=== PATIENT | male | born 1955 | race Caucasian/White ===

== ENCOUNTER 2017-05-08 08:11 | Outpatient (CLI) ==
[2014-05-10 13:09] VITALS: BMI 31.6
[2017-05-08 08:41] LABS: BASOPHILS # (AUTO) 0.1 K/uL (0-0.2); BASOPHILS % (AUTO) 0.8 % (0.0-3.0); EOSINOPHILS # (AUTO) 0.3 K/ul (0.0-0.7); EOSINOPHILS % (AUTO) 2.5 % (0.0-7.0); HEMATOCRIT 42.7 % (42.0-52.0); HEMOGLOBIN 14.6 g/dl (14.0-18.0); IMMATURE GRANULOCYTE % (AUTO) 0.4 % (0.0-5.0); LYMPHOCYTES # (AUTO) 2.8 K/uL (0.60-3.4); LYMPHOCYTES % (AUTO) 24.4 (10.0-50.0); MEAN CORPUSCULAR HGB CONC 34.2 (31.8-35.4); MEAN CORPUSCULAR VOLUME 84.7 fl (80.0-94.0); MONOCYTES # (AUTO) 0.8 K/uL (0.4-2.0); NEUTROPHILS # (AUTO) 7.6 K/ul (2.0-6.9); NEUTROPHILS % (AUTO) 64.9; PLATELET COUNT 375 10^3/uL (140-440); RED BLOOD COUNT 5.04 10^6/ul (4.70-6.10); WHITE BLOOD COUNT 11.63 K/ul (4.2-10.2)
[2017-05-08 09:16] LABS: ALBUMIN 3.5 g/dL (3.4-5.0); ALBUMIN/GLOBULIN RATIO 0.85; ANION GAP 13.1; BILIRUBIN,TOTAL 0.5 mg/dL (0.00-1.20); BUN/CREATININE RATIO 23.75; CALCIUM 9.5 mg/dL (8.2-10.2); CHOL/HDL RATIO 4.4 (4.5-6.4); CREATININE 0.8 mg/dL (0.60-1.10); POTASSIUM 4.1 mmol/L (3.5-5.1); TOTAL PROTEIN 7.6 g/dL (5.8-8.1)
== END 2017-05-08 08:12 | disposition home or self-care (01) ==
LOC: LAB 08:11
PROVIDERS: ATTEND Internal Medicine
DX: E78.5 Hyperlipidemia, unspecified (principal); I10 Essential (primary) hypertension; Z12.5 Encounter for screening for malignant neoplasm of prostate
CPT/HCPCS: 36415; 80053; 80061; 83036; 84443; 85025

== ENCOUNTER 2017-11-20 08:11 | Outpatient (CLI) | payer OTHER ==
[2014-05-10 13:09] VITALS: BMI 31.6
== END 2017-11-20 08:12 | disposition home or self-care (01) ==
LOC: LAB 08:11
PROVIDERS: ATTEND Internal Medicine
DX: E78.5 Hyperlipidemia, unspecified (principal); I10 Essential (primary) hypertension; J44.9 Chronic obstructive pulmonary disease, unspecified; R73.9 Hyperglycemia, unspecified
CPT/HCPCS: 36415; 80053; 80061; 83036; 84443; 85025

== ENCOUNTER 2018-05-11 07:48 | Outpatient (CLI) ==
[2014-05-10 13:09] VITALS: BMI 31.6
== END 2018-05-11 07:49 | disposition home or self-care (01) ==
LOC: LAB 07:48
PROVIDERS: ATTEND Internal Medicine
DX: E78.5 Hyperlipidemia, unspecified (principal); I10 Essential (primary) hypertension; R73.9 Hyperglycemia, unspecified
CPT/HCPCS: 36415; 80053; 80061; 83036; 84439; 84443; 85025

== ENCOUNTER 2018-11-05 13:45 | Outpatient (CLI) | payer OTHER ==
[2014-05-10 13:09] VITALS: BMI 31.6
--- NOTE | 2018-11-05 14:42 | CT ---
EXAM: CT of the lumbar spine without contrast History: Lower back pain, right leg pain. Technique: Multiplanar CT images through the lumbar spine were obtained without the administration o f IV contrast Findings: Atherosclerotic vascular calcifications. Colonic diverticulosis. No acute fracture or subluxation of the lumbar spine. Severe disc space narrowing at L1-L2 with endp late sclerosis, osteophyte formation and vacuum disc phenomenon. Moderate disc space narrowing at L4 -L5 and moderate disc space narrowing with the lower thoracic spine. Moderate disc space narrowing a t L5-S1. T12-L1: No significant disc bulge, central canal stenosis or bony neural foraminal narrowing. L1-L2: Large right paracentral disc protrusion effacing anterior thecal sac with moderate central ca nal stenosis. Moderate to severe right and mild left bony neural foraminal narrowing secondary to li gamentous and facet hypertrophy. L2-L3: Small disc bulge effacing anterior thecal sac with no significant central canal stenosis. Mod erate right and mild left bony neural foraminal narrowing secondary to ligamentous and facet hypertro phy. L3-L4: Modest to large paracentral disc protrusion effacing anterior thecal sac with moderate to sev ere central canal stenosis. Moderate to severe left and moderate right bony neural foraminal narrowi ng secondary to ligamentous and facet hypertrophy. L4-L5: Small disc bulge effacing anterior thecal sac with mild central canal stenosis. Severe left and moderate right bony neural foraminal narrowing secondary to ligamentous and facet hypertrophy. L5-S1: Left paracentral disc protrusion effacing anterior thecal sac with mild central canal stenosi s. Severe left and moderate to severe right bony neural foraminal narrowing secondary to ligamentous and facet hypertrophy. Impression: 1. No acute osseous abnormality of the lumbar spine. 2. Level by level analysis as detailed above with multilevel central canal stenosis and bony neural foraminal narrowing.
== END 2018-11-05 13:46 | disposition home or self-care (01) ==
LOC: RAD 13:45
PROVIDERS: ATTEND Internal Medicine
DX: M54.5 Low back pain (principal)

== ENCOUNTER 2018-12-15 08:15 | Outpatient (RCR) ==
[2014-05-10 13:09] VITALS: BMI 31.6
--- NOTE | 2018-11-27 08:25 | RS.OPPTEV2 ---
Date of Note: 11/26/18 Visit #: 1 Number of visits approved by Insurance: 20 visit max per year Date of Evaluation: 11/26/18 Payer Source: Insurance ([employer] [facility]) Date of Onset/Injury/Change in Status: 11/16/18 Treatment Diagnosis: Left LE radicular pain History of Condition/Mechanism of Injury:: Mr. Short states his pain started after shopping at a [employer] improvement store and reaching up and pulling out a plywood type board that was near the bottome of the pile. States he has had similar episodes before, but was able to get over it with a steroid injection and rest. Prior Level of Function.....Patient was independent with: ADL's, Self Care, Work /Vocation, Caregiving, Ambulation/Mobility, Community Integration/Access Functional Limitations: Sleep, ADL's (that require prolonged standing), Reaching , Pushing, Pulling, Lifting, Carrying, Standing, Ambulation, Community Access/ Integration Current Subjective/complaints:: Mr. Short reports left LE radiating pain since the first of this month. He has had two steroid injections and taken a round of oral steroids. His biggest relief has been since he started wearing a back brace last week. Reports pain in the left LE feels like a ball of fire down to the ankle. States he has this pain on a daily basis, like a toothache. Walking and standing bother him the worse. If he can lean forward and support himself on something, or sit down, he gets relief of his pain. He has been off work since the onset. 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 States sitting usually eases his pain, as long as it is a firm chair with his legs down. He cannot tolerate sitting in a reclined chair. Treatment Side (optional): Left Medical History Medical History: Hypertension Surgical History Comments:: CABG Smoking Status: Former smoker Hx Home Medications: Lisinopril, rosuvastatin, clopidogrel, metoprolol, aspirin Patient's Goals: His goal is to get relief of left LE pain and return to his regular activities. Pain Assessment - Pain Description Pain Location: Left buttock and radiating into the left LE to the ankle Pain Description: "like a ball of fire", toothache Current Pain Intensity: 6/10 Worst Pain Intensity: 9/10 Functional Outcome Measure Oswestry LBP: 56 - G Codes & Severity Modifier G Codes & Modifier: NA Source of G Code score: NA Observation - Observation Posture: Forward Head, Rounded Shoulders, Increased Thoracic Kyphosis, Decreased Lumbar Lordosis, Posterior Pelvic Tilt Gait - Gait Pattern Gait Comments: Patient ambulates with slight flexion at hips and no use of assistive device. - ROM Lumbar Flexion: Hand reach to Mid-Shins Sidebending to Left: Reach to Mid-thigh Sidebending to Right: Reach to Mid-thigh Comments: Reports reproduction of symptoms with lumbar extension and left lateral flexion. Reports no pain, other than muscle tightness with lumbar flexion. Bilateral LE AROM is WFL's. - Strength Trunk Lateral Flexion: 4 Good Trunk Rotation: 4 Good Comments: Bilateral LE strength is 4+ to 5/5 throughout. - Special Tests ABIGAIL Test: Negative Left, Negative Right SLR Test: Negative Right, Positive Left Seated Dural Stretch Test: Negative Right, Positive Left SI Joint Compression: Negative Palpation Comments:: Patient reports some tenderness over the left gluteal and piriformis region. Denies tenderness with palpation throughout the lumbar spine or to the SI joints. Demonstrates moderate increased muscle tone along the lumbar paraspinals. Sensation - Sensation Right Lower Extremity: Intact/Normal Left Lower Extremity: Intact/Normal Additional Comments: Additional Comments: SLR on the left painful at 30-35 degrees, able to take SLR to 45-50 degrees. Right SLR does not illicit pain and can go to 45-50 degrees. - Treatment Modality: Electrical Stim Unattended Parameters/Method Applied: 4 large pads uncrossed current, [address] vertically to each side of lumbar spine. X 20 mins HVGS upto 165 peak volts Patient Position: Sitting Comments: with Cold pack - Heat/Cryotherapy Treatment: Cryotherapy (with Estim to low back) Interventions - Exercise/Activities/Manual Therapy Exercises/Activities: Patient instructed in DKTC, SKTC, and Piriformis stretch for home. Advised to avoid standing or walking for long periods of time. Discussed positioning at night with pillows between his knees to relieve some pressure off his hips and spine. Also encouraged him to use ice or heat to his back to help manage his pain. Total minutes of Exercise: X 14 mins Manual Therapy: NA HOME EXERCISE PROGRAM: DKTC, SKTC, piriformis - Charges Timed Code Treatment Minutes: 14 mins Total Treatment Time: 58 mins Procedures billed for this date of service:: Eval low, Estim, CP EVALUATION COMPLEXITY LEVEL EVALUATION COMPLEXITY LEVEL: HISTORY: Low (CABG, Hx of episodes of back pain), EXAM OF BODY SYSTEMS: Medium (MS, ROM, sensation, gait), CLINICAL PRESENTATION: Low, CLINICAL DECISION MAKING: Low Assessment Assessment: Mr. Short presents to therapy with a diagnosis of sciatica. He reports back pain did not respond much to steroids. He has been helped more with wearing a back brace. He has difficulty tolerating standing and walking due to increased left LE pain. He has been unable to work since the onset of his pain. He gets relief if he can sit down in a firm chair or lean forward while standing. He demonstrates a positive SLR in sitting and supine. Denies tenderness in his area of pain. Feel Mr. Short's source of pain is likely from stenosis or inflammed facets. He demonstrates good potential to benefit from modalities to reduce his pain level and stretching to decrease muscle tension and spinal pressure to relieve his radiating pain. Patient Education: Education of diagnosis, Body/Joint mechanics, Home Exercise Program, Home Safety, Activity Modification, Education of Plan of Care Rehab Potential: Good Short Term Goals Goal #1: Patient independent in HEP. Goal to be met by: 12/11/18 Goal #2: Left LE pain decreased to less than daily. Goal to be met by: 12/11/18 Goal #3: Left LE pain localized to the hip. Goal to be met by: 12/11/18 Intermediate Goals Goal #1: Pt knows HEP and to continue ex's to maintain functional level at D/C, Goal to be met by: 01/06/19 Goal #2: Score on Oswestry LBP scale improved to 20. Goal to be met by: 01/06/19 Goal #3: Pt able to stand and walk without limitation from left LE pain. Goal to be met by: 01/06/19 Goal #4: Pt able to return to work with minimal LBP or LLE pain. Goal to be met by: 01/06/19 Plan - Treatment to be Provided Procedures: Therapeutic Exercises, Therapeutic Activity, Manual Therapy, Patient Education Modalities: Electrical Stimulation, Ultrasound/Phonophoresis, Class IV Laser, Cryotherapy, Hot Packs - Treatment Plan Frequency: 2-3 X week Duration: 4 weeks Dates of Intermediate Goals: 01/06/19 Expiration date of current Insurance Approval:: NA - Treatment Code (1) Left lumbar radiculopathy Code(s): M54.16 - RADICULOPATHY, LUMBAR REGION Comments: M54.16 (2) Sciatica associated with disorder of lumbar spine Code(s): M54.30 - SCIATICA, UNSPECIFIED SIDE (3) Sciatica Code(s): M54.30 - SCIATICA, UNSPECIFIED SIDE Qualifiers: Laterality: left Qualified Code(s): M54.32 - Sciatica, left side
--- NOTE | 2018-11-27 13:22 | RS.OPPTDN ---
Subjective Date of Note: 11/27/18 Visit #: 2 Number of visits approved by Insurance: 2-3x4 Date of Evaluation: 11/26/18 Payer Source: Insurance ([employer]) Treatment Diagnosis: Left LE radicular pain Current Subjective/complaints:: Patient says he felt pain relief from treatment at his eval and is still having decreased pain to 5/10 right now. He reports he has gained relief also from wearing his back brace. States he has performed instructed stretches and is using a pillow support between his knees laying on his side at home, which is also providing pain reduction. - Treatment Modality: Electrical Stim Unattended Parameters/Method Applied: hivolt 4 large pads running vertically to bilateral lumbar paraspinals and to SI joints @ 265-305 pk volts x 20 mins Patient Position: Right Sidelying - Heat/Cryotherapy Treatment: Hot Pack Interventions - Exercise/Activities/Manual Therapy Exercises/Activities: Patient receives stretching for piriformis, figure 4, SKTC , HS bilaterally, but with more focus to the L. Patient receives education on his diagnosis, anatomy, proper body mechanics, and HEP review. Total minutes of Exercise: 16 Manual Therapy: NA HOME EXERCISE PROGRAM: DKTC, SKTC, piriformis - Charges Timed Code Treatment Minutes: 16 Total Treatment Time: 36 Procedures billed for this date of service:: hp, estim (un), ex Assessment: Patient experiencing improved back pain with treatment and with constant use of his brace. He is compliant with initial HEP and is also finding relief with them. He should benefit from further modalities and progression of flexibility exercises and strengthening. Patient Education: Education of diagnosis, Body/Joint mechanics, Home Exercise Program, Education of Plan of Care Patient demonstrates compliance with HEP?: Yes Short Term Goals Goal #1: Patient independent in HEP. Goal to be met by: 12/11/18 Progress towards Goal:: Progressing Goal #2: Left LE pain decreased to less than daily. Goal to be met by: 12/11/18 Goal #3: Left LE pain localized to the hip. Goal to be met by: 12/11/18 [facility] Goals Goal #1: Pt knows HEP and to continue ex's to maintain functional level at D/C, Goal to be met by: 01/06/19 Goal #2: Score on Oswestry LBP scale improved to 20. Goal to be met by: 01/06/19 Goal #3: Pt able to stand and walk without limitation from left LE pain. Goal to be met by: 01/06/19 Goal #4: Pt able to return to work with minimal LBP or LLE pain. 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
--- NOTE | 2018-12-01 14:25 | RS.OPPTDN ---
Subjective Date of Note: 12/01/18 Visit #: 3 Number of visits approved by Insurance: na Date of Evaluation: 11/26/18 Payer Source: Insurance ([employer]) Treatment Diagnosis: Left LE radicular pain Current Subjective/complaints:: Patient states he is pleased that his back pain is less. He says pain is less often in the L leg. Reports he is performing stretches at home. He asks if he should start weaning from his back brace because he does not want to weaken his mm and get used to wearing it. He says it does help his posture significantly. - Treatment Modality: Electrical Stim Unattended Parameters/Method Applied: hivolt 4 large pads vertically down the lumbar paraspinals and superior gluts @ 265-305 pk volts x 20 mins Patient Position: Right Sidelying - Heat/Cryotherapy Treatment: Hot Pack Interventions - Exercise/Activities/Manual Therapy Exercises/Activities: Patient receives stretching for piriformis, figure 4, SKTC , HS bilaterally, but with more focus to the L. Began isometric hip abd/add/ flexion in hooklying x 8. Discussed weaning from brace using it once he is out of bed in the morning and using it until early afternoon, then remove. Discussed postural awareness, performing shoulder shrugs, scap adduction. Patient receives education on his diagnosis, anatomy, proper body mechanics, and HEP review. Total minutes of Exercise: 16 Manual Therapy: NA HOME EXERCISE PROGRAM: DKTC, SKTC, piriformis - Charges Timed Code Treatment Minutes: 16 Total Treatment Time: 36 Procedures billed for this date of service:: hp, estim (un), ex Assessment: Patient is experiencing less intense L sided back pain with also less frequent L LE symptoms. He is able to ambulate longer distances with less difficulty and remains optimistic about further reduction in pain as therapy sessions progress. He is planning to wean down off of his constant back brace and use it primarily when he awakens to early afternoon so that he can have less pain and better posture upon arising and perform strengthening exercises also throughout the day. Patient Education: Education of diagnosis, Body/Joint mechanics, Home Exercise Program Patient demonstrates compliance with HEP?: Yes Short Term Goals Goal #1: Patient independent in HEP. Goal to be met by: 12/11/18 Progress towards Goal:: Progressing Goal #2: Left LE pain decreased to less than daily. Goal to be met by: 12/11/18 Progress towards Goal:: Progressing Goal #3: Left LE pain localized to the hip. 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 Goal to be met by: 01/06/19 Goal #3: Pt able to stand and walk without limitation from left LE pain. Goal to be met by: 01/06/19 Goal #4: Pt able to return to work with minimal LBP or LLE pain. Goal to be met by: 01/06/19 Plan Dates of Platform Mill Supervisor Goals: 01/06/19 Expiration date of current Insurance Approval:: 01/06/19 PLAN: Patient to continue with modalities and therex for flexibility and trunk and postural strengthening.
--- NOTE | 2018-12-03 15:33 | RS.OPPTDN ---
Subjective Date of Note: 12/03/18 Visit #: 4 Number of visits approved by Insurance: na Date of Evaluation: 11/26/18 Payer Source: Insurance ([employer]) Treatment Diagnosis: Left LE radicular pain Current Subjective/complaints:: Patient says he has been wearing his brace less often. Mostly wearing when he awakens and then takes it off after lunch. He says his pain is lessening and is averaging 3/10. States his pain has gotten significantly better and having less down the L LE. Pain Assessment - Pain Description Pain Location: 3/10 to the L LOw back and buttock - Treatment Modality: Electrical Stim Unattended Parameters/Method Applied: hivolt 4 large pads x 20 mins @ 345-405 pk volts to the lumbar parapsinals and superior buttocks Patient Position: Right Sidelying - Heat/Cryotherapy Treatment: Hot Pack Interventions - Exercise/Activities/Manual Therapy Exercises/Activities: Patient receives stretching for piriformis, figure 4, SKTC , HS bilaterally, but with more focus to the L. Continued with isometric hip abd/add/flexion in hooklying x 10. Began bridging 2x5. Sits to perform shoulder shrugs and scap retraction. Patient receives education on his diagnosis, anatomy, proper body mechanics, and HEP review. Total minutes of Exercise: 18 Manual Therapy: NA HOME EXERCISE PROGRAM: DKTC, SKTC, piriformis - Charges Timed Code Treatment Minutes: 18 Total Treatment Time: 38 Procedures billed for this date of service:: hp, estim (un), ex Assessment: Patient experiencing continued decrease in L LB and L LE pain. He is wearing his back brace less often and gaining stability as he says his back pain has not increased with weaning off of it. He is able to provide increased resistance through isometric exercises and demo improved flexibility with hamstrings and piriformis. Patient Education: Body/Joint mechanics, Home Exercise Program Patient demonstrates compliance with HEP?: Yes Short Term Goals Goal #1: Patient independent in HEP. Goal to be met by: 12/11/18 Progress towards Goal:: Progressing Goal #2: Left LE pain decreased to less than daily. Goal to be met by: 12/11/18 Progress towards Goal:: Progressing Goal #3: Left LE pain localized to the hip. Goal to be met by: 12/11/18 Progress towards Goal:: Progressing Court Deputy Goals Goal #1: Pt knows HEP and to continue ex's to maintain functional level at D/C, Goal to be met by: 01/06/19 Goal #2: Score on Oswestry LBP scale improved to 20. Goal to be met by: 01/06/19 Goal #3: Pt able to stand and walk without limitation from left LE pain. Goal to be met by: 01/06/19 Goal #4: Pt able to return to work with minimal LBP or LLE pain. Goal to be met by: 01/06/[address] Goals: 01/06/19 Expiration date of current Insurance Approval:: 01/06/19 PLAN: Continue TIW for modalities to further ease back pain and progress strengthening
--- NOTE | 2018-12-10 08:50 | RS.OPPTDN ---
Subjective Date of Note: 12/08/18 Visit #: 5 Number of visits approved by Insurance: na Date of Evaluation: 11/26/18 Payer Source: Insurance ([email or web address]) Treatment Diagnosis: Left LE radicular pain Current Subjective/complaints:: Patient says he is able to walk and stand longer with less pain and difficulty. He says he has been able to see less tightness to his back and improved ease with all exercises. - Treatment Modality: Electrical Stim Unattended Parameters/Method Applied: hivolt 2 large pads to the L lumbar paraspinals and SI joint, 2 large to the R lumbar paraspinals @ 465pk and 425 pk volts respectively x 20 mins PRIOR to therex Patient Position: Right Sidelying - Heat/Cryotherapy Treatment: Hot Pack Interventions - Exercise/Activities/Manual Therapy Exercises/Activities: Patient receives progressive stretching bilaterally, but with more focus to the L LE: SKTC, HS, Piriformis, Figure 4, lower trunk rotation. He performs ball squeezes, green tband for hooklying hip abd, bridging, SLR, isometric hip flexion 2x10. Began stationary bike x 6 mins to build strength and endurance. Total minutes of Exercise: 19 Manual Therapy: NA HOME EXERCISE PROGRAM: DKTC, SKTC, piriformis - Charges Timed Code Treatment Minutes: 19 Total Treatment Time: 39 Procedures billed for this date of service:: hp, estim (un),ex Assessment: Patient maintaining lowered L LB and SI pain enabling him to stand and amb longer before pain presents. He is able to demo increased flexibility with all stretches and is [place] less dependency on his back brace. Began aerobic activity to return to PLOF and further improve LE strength to endure prolonged amb and standing for work. Patient Education: Body/Joint mechanics, Home Exercise Program, Education of Plan of Care Patient demonstrates compliance with HEP?: Yes Short Term Goals Goal #1: Patient independent in HEP. Goal to be met by: 12/11/18 Progress towards Goal:: Progressing Goal #2: Left LE pain decreased to less than daily. Goal to be met by: 12/11/18 Progress towards Goal:: Progressing Goal #3: Left LE pain localized to the hip. Goal to be met by: 12/11/18 Progress towards Goal:: Progressing [facility] Goals Goal #1: Pt knows HEP and to continue ex's to maintain functional level at D/C, Goal to be met by: 01/06/19 Goal #2: Score on Oswestry LBP scale improved to 20. Goal to be met by: 01/06/19 Goal #3: Pt able to stand and walk without limitation from left LE pain. Goal to be met by: 01/06/19 Goal #4: Pt able to return to work with minimal LBP or LLE pain. Goal to be met by: 01/06/19 Plan Dates of Activity Assistant Goals: 01/06/19 Expiration date of current Insurance Approval:: 01/06/19 PLAN: Continue to decrease L LE radiculopathy and aerobic activity cycling stationary bike and treadmill to meet goals.
--- NOTE | 2018-12-10 12:12 | RS.OPPTDN ---
Subjective Date of Note: 12/10/18 Visit #: 6 Number of visits approved by Insurance: na Date of Evaluation: 11/26/18 Payer Source: Insurance ([employer]) Treatment Diagnosis: Left LE radicular pain Current Subjective/complaints:: Patient says he is doing well with wearing brace less often. He states he felt good after working on the bike last session. States pain is only at the L groin intermittently and L LB. Pain Assessment - Pain Description Pain Location: 10/25 - Treatment Modality: Electrical Stim Unattended Parameters/Method Applied: hivolt 2 large pads at the L lower lumbar paraspinals and L SI joint @ 365 pk volts and 2 at the R lumbar paraspinals @ 335 pk volts x 20 mins Patient Position: Right Sidelying - Heat/Cryotherapy Treatment: Hot Pack Interventions - Exercise/Activities/Manual Therapy Exercises/Activities: Patient receives progressive stretching bilaterally, but with focus to the L. SKTC, HS, Piriformis, figure 4, lower trunk rotation x 3 reps. Isometrics for flexion/abd/add. Began treadmill @ 1.2-1.5 mph x 6 mins Total minutes of Exercise: 15 Manual Therapy: NA HOME EXERCISE PROGRAM: DKTC, SKTC, piriformis - Charges Timed Code Treatment Minutes: 15 Total Treatment Time: 35 Procedures billed for this date of service:: hp, estim(un), ex Assessment: Patient presents without brace and walking more erect. He has decreased pain and improved [place] to progressive therex including amb on treadmill x 6 mins without reproduction of pain. Patient Education: Body/Joint mechanics, Home Exercise Program Patient demonstrates compliance with HEP?: Yes Short Term Goals Goal #1: Patient independent in HEP. Goal to be met by: 12/11/18 Progress towards Goal:: Progressing Goal #2: Left LE pain decreased to less than daily. Goal to be met by: 12/11/18 Progress towards Goal:: Progressing Goal #3: Left LE pain localized to the hip. 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 Goal to be met by: 01/06/19 Goal #3: Pt able to stand and walk without limitation from left LE pain. Goal to be met by: 01/06/19 Goal #4: Pt able to return to work with minimal LBP or LLE pain. Goal to be met by: 01/06/19 Plan Dates of Nursing Home Goals: 01/06/19 Expiration date of current Insurance Approval:: 01/06/19 PLAN: Continue BIW
== END 2018-12-15 23:59 ==
PROVIDERS: ATTEND Internal Medicine
DX: M54.32 Sciatica, left side (principal); M54.16 Radiculopathy, lumbar region

== ENCOUNTER 2018-12-24 08:15 | Outpatient (RCR) ==
[2014-05-10 13:09] VITALS: BMI 31.6
--- NOTE | 2018-12-17 11:45 | RS.OPPTDN ---
Subjective Date of Note: 12/17/18 Visit #: 8 Number of visits approved by Insurance: 8-12 Date of Evaluation: 11/26/18 Payer Source: Insurance ([employer]) Treatment Diagnosis: Left LE radicular pain Current Subjective/complaints:: Patient says he has an order to continue therapy for 4 more weeks per referring MD. He says he believes he will finish out his original order and see how he feels. Dr. Arroyo released him to return to work if Dr. Brock is agreeable. Patient says he can tell therapy is building his endurance back and has performed new abdominal exercises at home. States his pain remains at the center of the lumbar spine and just slightly to the L. Denies any radiating symptoms today. - Treatment Modality: Electrical Stim Unattended Parameters/Method Applied: hivolt 2 large pads at the lumbar paraspinals @ 475- 500 pk volts x 12 mins Patient Position: Right Sidelying - Heat/Cryotherapy Treatment: Hot Pack Interventions - Exercise/Activities/Manual Therapy Exercises/Activities: Patient receives progressive stretching bilaterally, but with focus to the L. SKTC, HS, Piriformis, figure 4, lower trunk rotation x 3 reps. Hooklying: ball squeezes, bridging, lower trunk rotation with ball using blue tband, blue tband for LE crunch single leg diagonal, SLR, Leg presses beginning with 45#, 60, 75, then 90# x 12. Treadmill @ 1.3mph to 2.3 mph x 8 mins. Total minutes of Exercise: 24 Manual Therapy: NA HOME EXERCISE PROGRAM: DKTC, SKTC, piriformis - Charges Timed Code Treatment Minutes: 24 Total Treatment Time: 36 Procedures billed for this date of service:: hp, estim (un), ex2 Assessment: Patient presents order to continue x 4 weeks. Patient will continue with current order x 4 more sessions for progressive therex to assist him with returning to work. He demo 2/10 pain at the L4L5 spine and just to the L slightly. No radiating symptoms noted throughout activity. We have weaned estim and reduced time allowing it to relax prior to therex and further decrease and localize pain. Patient Education: Body/Joint mechanics, Education of Plan of Care Patient demonstrates compliance with HEP?: Yes Short Term Goals Goal #1: Patient independent in HEP. Goal to be met by: 12/11/18 Progress towards Goal:: Met Goal #2: Left LE pain decreased to less than daily. Goal to be met by: 12/11/18 Progress towards Goal:: Met Goal #3: Left LE pain localized to the hip. Goal to be met by: 12/11/18 Progress towards Goal:: Met Content Strategy Lead Goals Goal #1: Pt knows HEP and to continue ex's to maintain functional level at D/C, Goal to be met by: 01/06/19 Progress towards goal: Progressing Goal #2: Score on Oswestry LBP scale improved to 20. Goal to be met by: 01/06/19 Progress towards goal: Progressing Goal #3: Pt able to stand and walk without limitation from left LE pain. Goal to be met by: 01/06/19 Progress towards goal: Progressing Goal #4: Pt able to return to work with minimal LBP or LLE pain. Goal to be met by: 01/06/19 Plan Dates of Content Strategy Lead Goals: 01/06/19 Expiration date of current Insurance Approval:: 01/06/19 PLAN: Patient to continue with progressive therex x 4 more sessions to target abdominal and LE strengthening.
--- NOTE | 2018-12-22 13:15 | RS.OPPTDN ---
Subjective Date of Note: 12/22/18 Visit #: 9 Number of visits approved by Insurance: 10 Date of Evaluation: 11/26/18 Payer Source: Insurance ([facility]) Treatment Diagnosis: Left LE radicular pain Current Subjective/complaints:: Patient says he is ready to go back to work. Reports that he has not worn his brace in over a week and has had very little to no pain at his back. He asks if he can begin walking at the park. Interventions - Exercise/Activities/Manual Therapy Exercises/Activities: Patient receives progressive stretching bilaterally, but with focus to the L. SKTC, HS, Piriformis, figure 4, lower trunk rotation x 4 reps. Hooklying: ball squeezes, bridging, lower trunk rotation with ball using blue tband, blue tband for LE crunch bilaterally in hooklying all 2x10. SLR, Leg presses beginning with 60#, 75, 90, 105# 2 x 12. Sittin# wand for bilateral shoulder flexion at EOB, Blue tband for scap retraction, holding 4# wand in front of body and performing alternate LE lift x 15. Treadmill @ 1.6mph to 2.6 mph x 11mins. Total minutes of Exercise: 38 Manual Therapy: NA HOME EXERCISE PROGRAM: DKTC, SKTC, piriformis - Charges Timed Code Treatment Minutes: 38 Total Treatment Time: 38 Procedures billed for this date of service:: ex3 Assessment: Patient progressing with having little to no back pain staying local at the L LB when present. Discomfort only felt to equally bilateral quads with and following therex indicating general mm fatigue. Sawyer is anticipating returning to work after his next visit. He is happy to continue final session without continuing with another order at this point based on his progress. Patient encouraged to resume walking level lap at the local park as he had previous to injury. Discussed avoiding any inclined surfaces at this time. Patient Education: Body/Joint mechanics, Education of Plan of Care Patient demonstrates compliance with HEP?: Yes Short Term Goals Goal #1: Patient independent in HEP. Goal to be met by: 12/11/18 Progress towards Goal:: Met Goal #2: Left LE pain decreased to less than daily. Goal to be met by: 12/11/18 Progress towards Goal:: Met Goal #3: Left LE pain localized to the hip. Goal to be met by: 12/11/18 Progress towards Goal:: Met Mcfp Goals Goal #1: Pt knows HEP and to continue ex's to maintain functional level at D/C, Goal to be met by: 01/06/19 Progress towards goal: Progressing Goal #2: Score on Oswestry LBP scale improved to 20. Goal to be met by: 01/06/19 Progress towards goal: Progressing Comments: Assess next session Goal #3: Pt able to stand and walk without limitation from left LE pain. Goal to be met by: 01/06/19 Progress towards goal: Met Goal #4: Pt able to return to work with minimal LBP or LLE pain. Goal to be met by: 01/06/19 Progress towards goal: Progressing Plan Dates of Engineer Exhauster Goals: 01/06/19 Expiration date of current Insurance Approval:: 01/06/19 PLAN: Patient wishes to continue x 1 more session. Complete reassessment next session and progress HEP.
--- NOTE | 2018-12-24 11:03 | RS.OPPTDN ---
Subjective Date of Note: 12/24/18 Visit #: 11 Number of visits approved by Insurance: 12 Date of Evaluation: 11/26/18 Payer Source: Insurance ([facility]) Treatment Diagnosis: Left LE radicular pain Current Subjective/complaints:: Patient states he no longer has pain. C/o "ordinary arthritis ache every now and then." Denies any symptoms to the L LE. Reports he has been walking at the park, level "lap" 4 times. He says he is ready to return to work and will see Dr. Brock on 12/30/18 and will need to see Dr. Oneill soon to release him to work. 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 Interventions - Exercise/Activities/Manual Therapy Exercises/Activities: Sawyer begins with stationary bike x 7 mins for/reverse. Patient receives progressive stretching bilaterally. SKTC, HS, Piriformis, figure 4, lower trunk rotation x 4 reps. Hooklying: ball squeezes, bridging, lower trunk rotation with ball using blue tband, blue tband for LE crunch bilaterally in hooklying all 2x10. SLR, Leg presses beginning with 60#, 75, 90 , 105# 2 x 12. Sittin# wand for bilateral shoulder flexion at EOB, Blue tband for scap retraction, holding 8# wand in front of body and performing alternate LE lift x 15. Patient completes Reassessment (Oswestry). Reviewed HEP and body mechanics for work duties. Total minutes of Exercise: 38 Manual Therapy: NA HOME EXERCISE PROGRAM: DKTC, SKTC, piriformis - Charges Timed Code Treatment Minutes: 38 Total Treatment Time: 45 Procedures billed for this date of service:: ex3 Assessment: Patient demo improvement on Oswestry from 28 to 4 or 8% disability now. He admits no pain throughout all therex and resuming walking routine at local park. He admits readiness to return to work. He demo improved flexibility of HS and lumbar also showing much improved tolerance to progressive exercise aerobic and trunk strengthening. Patient Education: Body/Joint mechanics, Home Exercise Program, Education of Plan of Care Patient demonstrates compliance with HEP?: Yes Short Term Goals Goal #1: Patient independent in HEP. Goal to be met by: 12/11/18 Progress towards Goal:: Met Goal #2: Left LE pain decreased to less than daily. Goal to be met by: 12/11/18 Progress towards Goal:: Met Goal #3: Left LE pain localized to the hip. Goal to be met by: 12/11/18 Progress towards Goal:: Met Detention Goals Goal #1: Pt knows HEP and to continue ex's to maintain functional level at D/C, Goal to be met by: 01/06/19 Progress towards goal: Met Goal #2: Score on Oswestry LBP scale improved to 20. Goal to be met by: 01/06/19 Progress towards goal: Met Goal #3: Pt able to stand and walk without limitation from left LE pain. Goal to be met by: 01/06/19 Progress towards goal: Met Goal #4: Pt able to return to work with minimal LBP or LLE pain. Goal to be met by: 01/06/19 Progress towards goal: Progressing Comments: Patient will see his MD 12/30/18 and contacting HR about returning to work. Plan Dates of Detention Goals: 01/06/19 Expiration date of current Insurance Approval:: 01/06/19 PLAN: Patient has completed order. Will hold chart 1-2 weeks and will discharge based on return to work
--- NOTE | 2019-01-14 15:53 | RS.QUICKDC ---
Discharge from PT Date of Discharge: 12/24/18 Number of Visits: 11 Reason for Discharge: Patient has completed original order and will be following up with his PCP soon leading him to make an appt with his referring MD (Nino) to return to work thereafter. 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 He is eager to return to work at this point and is satisfied with his progress. Patient demo improvement on Oswestry from 28 to 4 or 8% disability now. He admits no pain throughout all therex and resuming walking routine at local park. He admits readiness to return to work. He demo improved flexibility of HS and lumbar also showing much improved tolerance to progressive exercise aerobic and trunk strengthening. See daily notes for specific treatment.
== END 2019-01-15 23:59 ==
PROVIDERS: ATTEND Internal Medicine
DX: M54.9 Dorsalgia, unspecified (principal)

== ENCOUNTER 2018-12-30 08:08 | Outpatient (CLI) ==
[2014-05-10 13:09] VITALS: BMI 31.6
--- NOTE | 2018-12-30 10:50 | MRI ---
EXAM: Lumbar spine MRI without contrast. HISTORY: Lumbar degeneration. COMPARISON: Lumbar spine CT scan 11/05/2018 and lumbar spine MRI 04/25/2016. TECHNIQUE: Multiplanar, multisequence MR images were acquired of the lumbar spine without contrast. FINDINGS: Five non-rib bearing lumbar vertebra are present. Conus medullaris ends at L1-2 and has n ormal morphology and signal intensity. There is minor thoracolumbar levoscoliosis centered at L1-2 a nd there is mild loss of the usual smooth lumbar lordosis with 1.5 mm retrolisthesis of L3 on L4, L4 on L5 and L5 on S1. The lumbar vertebra are generally normal in height and intrinsic bone marrow sig nal. There is moderate multilevel degenerative spondylosis and a limbus vertebra is present at L4. There is desiccation of the lumbar intervertebral discs and there is mild irregularity of the endplat es from T12-L1 to L3-4 and there are small chronic Schmorl's nodes along the L4 and L5 superior endpl ates. At L1-2, there is a diffuse spondylotic disc bulge with moderate right anterolateral and later al endplate osteophytes, moderate disc space narrowing that is greatest right laterally with mild rig ht lateral endplate irregularity, disc desiccation with vacuum phenomenon and moderate right lateral type 2 endplate changes and mild right anterolateral type 1 endplate changes. L4-5, there is a diffu se spondylotic disc bulge that is asymmetric to the left with moderate disc space narrowing that is g reatest left posteriorly with predominantly type 3 endplate changes. The partially visualized liver, spleen and kidneys are unremarkable. There are no paravertebral mass es. T12-L1: There is a mild bilobed disc bulge that is asymmetric to the left with a small right paracen tral disc protrusion which is best demonstrated on sagittal sections. Minor bilateral facet arthropa thy and ligamentum flavum hypertrophy is present and there is minor bilateral neural foraminal stenos is. No central canal stenosis is present. L1-2: There is a diffuse spondylotic disc bulge with right anterolateral and lateral endplate osteop hytes and a large central disc protrusion with partial calcification or ossification of the annulus. This effaces the ventral thecal sac and causes moderately severe central canal stenosis and mild lef t and mild to moderate right neural foraminal stenosis. AP diameter of the thecal sac is 6 mm. L2-3: There is a mild diffuse spondylotic disc bulge that effaces the ventral thecal sac and narrows the inferior neural foramina bilaterally. Minor bilateral facet arthropathy and mild ligamentum fla vum hypertrophy is present. There is a tiny left facet effusion and these findings cause mild left a nd mild to moderate right neural foraminal stenosis. There is no central canal stenosis. L3-4: There is a diffuse spondylotic disc bulge and a moderate left paracentral disc protrusion that extends from to the right of midline to the left lateral recess. This effaces the left anterior sub arachnoid space. Mild bilateral facet arthropathy and ligamentum flavum hypertrophy is present. The re is mild to moderate central canal stenosis, left lateral recess stenosis with encroachment on the L4 nerve roots and mild to moderate bilateral neural foraminal stenosis, greater on the left. AP kriss meter of the thecal sac is 6.9 mm. L4-5: There is a diffuse spondylotic disc bulge with endplate osteophytes that is asymmetric to the left with left lateral/far lateral endplate osteophytes, a small central disc protrusion and a probab le left foraminal disc protrusion. Mild right and mild-moderate left hypertrophic facet arthropathy and ligamentum flavum hypertrophy is present which completely effaces the left neural foramen. Ther e is a small left facet effusion and a small synovial cyst along the inferior left facet joint. Thes e findings cause left lateral recess stenosis with encroachment on the left L5 nerve roots, mild to m oderate right neural foraminal stenosis and severe left neural foraminal stenosis with compression of the left L4 nerve. These findings have progressed compared to prior MRI. L5-S1: There is a diffuse disc osteophyte complex with bilateral far lateral endplate osteophytes an d a small broad-based central and left posterolateral disc protrusion that has herniated into the med ial left neural foramen. Mild right greater than left facet arthropathy and ligamentum flavum hypert rophy is present. These findings cause left lateral recess stenosis with encroachment on the left S1 nerve roots, severe left neural foraminal stenosis with compression of the left L5 nerve and mild to moderate right neural foraminal stenosis. IMPRESSION: 1. Moderate lumbar degenerative spondylosis with no change in the large central partially calcified disc herniation at L1-2 which causes moderate spinal stenosis. 2. Small disc herniations T12-L1, L4-5 and L5-S1. 3. Probable small left foraminal disc protrusion L4-5. 4. Mild to moderate right L1-2, L2-3, L4-5 and L5-S1, mild to moderate bilateral L3-4 and severe le ft L4-5 and L5-S1 neural foraminal stenosis.
== END 2018-12-30 08:09 | disposition home or self-care (01) ==
LOC: RAD 08:08
PROVIDERS: ATTEND Nurse Practitioner
DX: M51.37 Other intervertebral disc degeneration, lumbosacral region (principal)

== ENCOUNTER 2019-01-01 07:06 | Outpatient (CLI) ==
[2014-05-10 13:09] VITALS: BMI 31.6
== END 2019-01-01 07:07 | disposition home or self-care (01) ==
LOC: LAB 07:06
PROVIDERS: ATTEND Internal Medicine
DX: E78.5 Hyperlipidemia, unspecified (principal); I10 Essential (primary) hypertension; Z95.1 Presence of aortocoronary bypass graft; I51.7 Cardiomegaly
CPT/HCPCS: 36415; 80053; 80061; 83036; 84439; 84443; 85025